=== PATIENT | male | born 2000 | race Hispanic/Latino ===

== ENCOUNTER 2019-06-07 13:07 | Emergency (ER) | payer OTHER ==
[~2019-06-07] VITALS: Ht 167.6 cm; Wt 53.1 kg
[2019-06-07] MEDS ORDERED: TESSALON PERLE100 MG PO (14:29)
[2019-06-07 15:52] VITALS: BP 107/62
== END 2019-06-07 15:03 | disposition home or self-care (01) ==
LOC: FSED 13:07
DX: R50.9 Fever, unspecified (principal); R05 Cough; R07.1 Chest pain on breathing; R07.2 Precordial pain; J02.9 Acute pharyngitis, unspecified
CPT/HCPCS: 80053; 83518; 84484; 85025; 85379; 93005; 99284